=== PATIENT | male | born 2000 | race Asian ===

== ENCOUNTER 2022-07-21 17:05 | Outpatient (CLI) | payer OTHER, SELFPAY | END 2022-07-21 17:06 | disposition home or self-care (01) | LOC: AMB 08-28 20:40 | PROVIDERS: Visit Provider Emergency Medicine Emergency Medical Services | DX: F32.9 Major depressive disorder, single episode, unspecified (principal); R45.851 Suicidal ideations | CPT/HCPCS: A0425; A0427 ==

== ENCOUNTER 2022-07-21 17:29 | Emergency (ER) | payer OTHER, SELFPAY ==
[2022-07-21 17:40] VITALS: BP 131/91; PULSE 94; RESP 16; TEMP 36.4; O2SAT 99; BMI 27.8
--- NOTE | 2022-07-21 17:57 | ED.PSYCH ---
HPI - Psych General Chief Complaint: Psychiatric Problem/Disorder Stated Complaint: Mental health Time Seen by Provider: 07/21/22 17:40 History of Present Illness HPI Narrative: This 21-year-old male is a student at [employer]. He comes in by ambulance because he stated that he would end his life if somebody did not help him. He has had thoughts of suicide chronically. He did attempt to take his life when in high school. He states that his plan currently would be to jump from a balcony. He is dorm is on the 7th floor so he does have access to this method if he chooses to do so. He denies any other health related issues. He states that he does not use alcohol or street drugs. There is no report of any medications otherwise also. He denies having any insomnia and does not report any auditory or visual hallucinations. When asked if there was any triggers that made things worse he simply stated that there was lots of stress related to his school and the economy and such. Related Data Previous Rx's Medication Instructions Recorded escitalopram oxalate 10 mg tablet 10 mg PO DAILY #30 tabs 07/21/22 (Lexapro) Allergies Allergy/AdvReac Type Severity Reaction Status Date / Time No Known Drug Allergies Allergy Verified 07/21/22 17:49 Review of Systems Status of ROS: Reports: 10 or more systems reviewed and unremarkable except as noted in History and below Narrative: Constitutional: No fevers, no weight gain or loss. Eyes: No discharge. No vision changes. HENT: No congestion, no sore throat, no ear pain. Cardiovascular: No chest pain, no palpitations. Respiratory: No shortness of breath, no wheezes, no cough. Gastrointestinal: No abdominal pain, no vomiting, no diarrhea. Genitourinary: No dysuria, no hematuria. Musculoskeletal: Normal range of motion. Skin: No rashes, no pruritis. Neurological: No dizziness, weakness, sensory change, speech change. Endo/Heme/Allergies: No bruising or bleeding. No polydipsia. Pysch: no insomnia. He reports suicidality as described above. All other systems reviewed and are negative. Exam Narrative: Exam Narrative: Constitutional: Well-developed, well-nourished, no acute distress. HEENT: Normocephalic, atraumatic. Neck: Normal range of motion. Nontender. Supple. Heart: Regular. No murmurs. Normal rate. Intact distal pulses. Lungs: Clear to auscultation. No chest discomfort. No wheezes, rhonchi, or rales. Abdomen: Normal bowel sounds. Nontender. No rebound tenderness. Genitalia: Deferred. Back: No midline tenderness. Normal range of motion. Extremities: Normal range of motion. No injury. Skin: Intact. No rash. Warm. No erythema or pallor. Neurologic: No altered sensation. No weakness. Alert and oriented. Psychiatric: He is pleasant and cooperative. He has a suicidal plan. Nursing notes and vitals signs are reviewed. Const: Vital Signs, click to edit/add: Vital Signs - 24 hr 07/21/22 17:40 Temperature 97.6 F Pulse Rate [Right Pulse Oximeter] 94 Respiratory Rate 16 Blood Pressure [Ri ght Upper Arm] 131/91 H Pulse Oximetry 99 Oxygen Delivery Me thod Room Air Course Vital Signs Vital signs: Initial Vital Signs Temperature 97.6 F 07/21/22 17:40 Temperature Source Temporal Artery Scan 07/21/22 17:40 Pulse Rate 94 07/21/22 17:40 Pulse Rhythm 07/21/22 17:40 Respiratory Rate 16 07/21/22 17:40 Blood Pressure 131/91 H 07/21/22 17:40 Blood Pressure Mean 104 07/21/22 17:40 Blood Pressure Position Sitting 07/21/22 17:40 Pulse Oximetry 99 07/21/22 17:40 Oxygen Delivery Method 07/21/22 17:40 Vital Signs Temperature 97.6 F 07/21/22 17:40 Pulse Rate 94 07/21/22 17:40 Respiratory Rate 16 07/21/22 17:40 Blood Pressure 131/91 H 07/21/22 17:40 Pulse Oximetry 99 07/21/22 17:40 Oxygen Delivery Method 07/21/22 17:40 Temperature 97.6 F 07/21/22 17:40 Pulse Rate 94 07/21/22 17:40 Respiratory Rate 16 07/21/22 17:40 Blood Pressure 131/91 H 07/21/22 17:40 Pulse Oximetry 99 07/21/22 17:40 Oxygen Delivery Method 07/21/22 17:40 MDM - Psych MDM Narrative Medical decision making narrative: This patient comes in with stated plan and desire to end his life. He has a prior attempt on his life several years ago. A tele health mental assessment is ordered and labs are drawn. A tele health assessment returns with essentially recommendation that it is okay for him to return home. His father is with him now and was part of the interview process. All are in agreement that this plan is reasonable. The patient himself states that people have difficulty understanding him which is true as he is from [place] and has good understanding of anguish but is difficult to understand at times. He is agreeable to a prescription for Lexapro. Additionally he has resources at his school for therapy and understands that he can return here if symptoms are worsening. Lab Data Labs: Lab Results 07/21/22 07/21/22 07/21/22 Range/Units 18:05 18:20 18:20 WBC 6.91 (4.50-11.00) K/uL RBC 4.94 (4.30-5.90) m/uL Hgb 15.0 (13.5-17.5) gm/dL Hct 45.0 (37.0-53.0) % MCV 91 (80-100) fL MCH 30 (26-34) pg MCHC 33 (32-36) gm/dL RDW Coeff of Fabian 11.4 L (11.5-15.5) % Plt Count 263 (140-440) K/uL Neut % (Auto) 55.3 (42.0-72.0) % Lymph % (Auto) 35.5 (20-44) % [place] % (Auto) 6.8 (0.0-11.0) % Eos % (Auto) 2.0 (0.0-7.0) % Baso % (Auto) 0.3 (0.0-3.0) % Neut # (Auto) 3.82 (1.7-7.0) K/uL Lymph # (Auto) 2.45 (0.90-2.90) K/uL [place] # (Auto) 0.50 (0.00-0.90) K/UL Eos # (Auto) 0.14 (0.00-0.50) K/uL Baso # (Auto) 0.02 (0.00-0.30) K/uL Abs Immat Gran (auto) 0.01 (0.00-0.30) K/uL Sodium 139 (135-149) mmol/L Potassium 3.8 (3.6-5.1) mmol/L Chloride 101 (96-114) mmol/L Carbon Dioxide 23 (20-32) mmol/L BUN 14 (5-24) mg/dL Creatinine 0.8 (0.5-1.5) mg/dL Estimated Creat Clear 141.31 Estimated GFR 129 ml/min Glucose 102 (60-115) mg/dL Calcium 9.8 (8.4-10.6) mg/dL Urine Opiates Screen Negative (Negative) Ur Oxycodone Screen Negative (Negative) Urine Methadone Screen Negative (Negative) Ur Propoxyphene Screen Negative (Negative) Acetaminophen (10.0-30.0) ug/mL Ur Barbiturates Screen Negative (Negative) U Tricyclic Antidepress Negative (Negative) Ur Phencyclidine Scrn Negative (Negative) Ur Amphetamines Screen Negative (Negative) U Methamphetamines Scrn Negative (Negative) U Benzodiazepines Scrn Negative (Negative) Urine Cocaine Screen Negative (Negative) U Marijuana (THC) Screen Negative (Negative) Ur Drug Screen Comment See Note 07/21/22 Range/Units 18:20 WBC (4.50-11.00) K/uL RBC (4.30-5.90) m/uL Hgb (13.5-17.5) gm/dL Hct (37.0-53.0) % MCV (80-100) fL MCH (26-34) pg MCHC (32-36) gm/dL RDW Coeff of Fabian (11.5-15.5) % Plt Count (140-440) K/uL Neut % (Auto) (42.0-72.0) % Lymph % (Auto) (20-44) % [place] % (Auto) (0.0-11.0) % Eos % (Auto) (0.0-7.0) % Baso % (Auto) (0.0-3.0) % Neut # (Auto) (1.7-7.0) K/uL Lymph # (Auto) (0.90-2.90) K/uL [place] # (Auto) (0.00-0.90) K/UL Eos # (Auto) (0.00-0.50) K/uL Baso # (Auto) (0.00-0.30) K/uL Abs Immat Gran (auto) (0.00-0.30) K/uL Sodium (135-149) mmol/L Potassium (3.6-5.1) mmol/L Chloride (96-114) mmol/L Carbon Dioxide (20-32) mmol/L BUN (5-24) mg/dL Creatinine (0.5-1.5) mg/dL Estimated Creat Clear Estimated GFR ml/min Glucose (60-115) mg/dL Calcium (8.4-10.6) mg/dL Urine Opiates Screen (Negative) Ur Oxycodone Screen (Negative) Urine Methadone Screen (Negative) Ur Propoxyphene Screen (Negative) Acetaminophen < 10.0 L (10.0-30.0) ug/mL Ur Barbiturates Screen (Negative) U Tricyclic Antidepress (Negative) Ur Phencyclidine Scrn (Negative) Ur Amphetamines Screen (Negative) U Methamphetamines Scrn (Negative) U Benzodiazepines Scrn (Negative) Urine Cocaine Screen (Negative) U Marijuana (THC) Screen (Negative) Ur Drug Screen Comment Discharge Plan Discharge Clinical Impression: Anxiety, Depression Patient Disposition: Home, Self-Care Condition: Stable Additional Instructions: Take medication as prescribed. Take advantage of therapy and counseling resources at school. Return if symptoms are persistent or worsening. Prescriptions: New escitalopram oxalate [Lexapro] 10 mg tablet 10 mg PO DAILY Qty: 30 2RF Stand Alone Forms: [facility] [facility] [employer] [facility] [employer] Info Instructions
[2022-07-21 18:27] LABS: Basophils Absolute Auto 0.02 K/uL (0.00-0.30); Basophils Percent Auto 0.3 % (0.0-3.0); Eosinophils Absolute Auto 0.14 K/uL (0.00-0.50); Immature Granulocytes Abs Auto 0.01 K/uL (0.00-0.30); Lymphocytes Absolute Auto 2.45 K/uL (0.90-2.90); Lymphocytes Percent Auto 35.5 % (20-44); Mean Corpuscular HGB Conc 33 gm/dL (32-36); Mean Corpuscular Hemoglobin 30 pg (26-34); Mean Corpuscular Volume 91 fL (80-100); Monocytes Percent Auto 6.8 % (0.0-11.0); Neutrophils Absolute Auto 3.82 K/uL (1.7-7.0); Neutrophils Percent Auto 55.3 % (42.0-72.0); Platelet Count* 263 K/uL (140-440); RDW Coefficient of Variation % 11.4 % (11.5-15.5); Red Blood Count 4.94 m/uL (4.30-5.90); White Blood Count* 6.91 K/uL (4.50-11.00)
[2022-07-21 18:33] LABS: Slide Review Reflex No
[2022-07-21 18:37] LABS: Amphetamine Screen Urine Negative (Negative); Barbiturate Screen Urine Negative (Negative); Benzodiazepines Screen Urine Negative (Negative); Cannabinoid Screen Urine Negative (Negative); Cocaine Screen Urine Negative (Negative); Methadone Screen Urine Negative (Negative); Methamphetamines Screen Urine Negative (Negative); Opiate Screen Urine Negative (Negative); Oxycodone Screen Urine Negative (Negative); Phencyclidine Screen Urine Negative (Negative); Tricyclic Antidepressant Urine Negative (Negative)
[2022-07-21 18:47] LABS: Chloride* 101 mmol/L (96-114)
[2022-07-21 18:48] LABS: Potassium* 3.8 mmol/L (3.6-5.1); Sodium* 139 mmol/L (135-149)
[2022-07-21 18:50] LABS: Carbon Dioxide* 23 mmol/L (20-32); Creatinine* 0.8 mg/dL (0.5-1.5); Est. Creatinine Clearance* 141.31; Estimated Glomerular Filt Rate 129 ml/min
[2022-07-21 18:51] LABS: Blood Urea Nitrogen* 14 mg/dL (5-24); Calcium* 9.8 mg/dL (8.4-10.6); Glucose* 102 mg/dL (60-115)
[2022-07-21 18:52] LABS: Acetaminophen* < 10.0 ug/mL (10.0-30.0)
[2022-07-21 19:09] LABS: SARS PCR* Negative SARS-CoV-2 (Negative)
--- NOTE | 2022-07-21 19:30 | ED.NURSE ---
Safety plan provided to pt, pt reviewed and signed safety plan. Copy of safety plan and follow-up plan from AUG given to pt.
[2022-07-21 19:35] VITALS: BP 125/86; PULSE 84; O2SAT 96
== END 2022-07-21 19:35 | disposition home or self-care (01) ==
LOC: ED 19:15
PROVIDERS: Emergency Provider Emergency Medicine Emergency Medical Services
DX: F41.9 Anxiety disorder, unspecified (principal); F32.A Depression, unspecified
CPT/HCPCS: 36415; 80048; 80143; 80306; 84443; 85025; 87635; 99284; 99285